=== PATIENT | male | born 1980 | race American Indian/Alaskan Native ===

== ENCOUNTER 2019-06-13 22:19 | Emergency (ER) | payer SELFPAY ==
[2019-06-13 22:24] VITALS: BP 123/71
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
== END 2019-06-14 01:00 | disposition left against medical advice (07) ==
LOC: ED 22:19
DX: Z04.1 Encounter for examination and observation following transport accident (principal); Z53.21 Procedure and treatment not carried out due to patient leaving prior to being seen by health care provider
CPT/HCPCS: 72040

== ENCOUNTER 2020-08-07 05:06 | Emergency (ER) | payer SELFPAY ==
[2020-08-07 06:37] LABS: Bilirubin,Urine NEG (Negative); Blood,Urine NEG (Negative); Color,Urine Straw (Yellow); Protein,Urine <15 mg/dL mg/dL (Negative); Urobilinogen,Urine < 2.0 mg/dL (<2.0)
[2020-08-07 07:29] LABS: Basophils % (Auto) 0.3 % (0.0-1.8); Eosinophils # (Auto) 0.1 K/mm3 (0.0-0.4); Eosinophils % (Auto) 2.4 % (0.0-4.3); Hemoglobin 13.8 gm/dl (11.8-15.2); Lymphocytes # (Auto) 2.4 K/mm3 (1.2-5.4); Lymphocytes % (Auto) 42.7 % (13.4-35.0); Mean Corpuscular HGB Conc 35 % (32-34); Mean Corpuscular Volume 96 fl (84-94); Monocytes # (Auto) 0.6 K/mm3 (0.0-0.8); Monocytes % (Auto) 10.7 % (0.0-7.3); Platelet Count 217 K/mm3 (140-440); Red Blood Count 4.17 M/mm3 (3.65-5.03); Red Cell Distribution Width 13.3 % (13.2-15.2)
[2020-08-07 07:48] LABS: Alanine Aminotransferase 15 units/L (7-56); Albumin 4.2 g/dL (3.9-5); BUN/Creatinine Ratio 11; Blood Urea Nitrogen 12 mg/dL (9-20); Calcium 9.2 mg/dL (8.4-10.2); Hemolysis Index 6
[2020-08-07] MEDS ORDERED: AZITHROMYCIN 250 MG TAB PO ONE (11:26)
[2020-08-07] MEDS ORDERED: LIDOCAINE-MPF (1%) 10 MG/1 ML VIAL 5 ML INFILTRATI ONE (11:26)
--- NOTE | 2020-08-07 11:38 | Emergency Department Report ---
ED General Adult HPI - General Chief complaint: Abdominal Pain Stated complaint: ABD/GROIN PAIN Time Seen by Provider: 08/07/20 10:56 Source: patient Mode of arrival: Ambulatory Limitations: No Limitations - History of Present Illness Initial comments: Patient is a 39-year-old male presents emergency room with complaints of suprapubic abdominal pain that began 3 days ago. He has associated white penile discharge. He denies any vomiting, diarrhea, fever, dysuria, hematuria, urinary retention, pain or swelling in the testicles, lesions or blisters. He states he had a normal bowel movement this morning. He states he has had a new sexual partner. He states he has had a STD in the past approximately 20 years ago. He denies any allergies to medications. - Related Data Allergies Allergy/AdvReac Type Severity Reaction Status Date / Time No Known Allergies Allergy Verified 06/13/19 22:25 ED Review of Systems ROS: Stated complaint: ABD/GROIN PAIN Other details as noted in HPI Comment: All other systems reviewed and negative ED Past Medical Hx - Past Medical History Previous Medical History?: No - Surgical History Past Surgical History?: No - Social History Smoking Status: Never Smoker Substance Use Type: None ED Physical Exam - General Limitations: No Limitations General appearance: alert, in no apparent distress - Head Head exam: Present: atraumatic, normocephalic - Eye Eye exam: Present: normal appearance - ENT ENT exam: Present: mucous membranes moist - Respiratory Respiratory exam: Present: normal lung sounds bilaterally. Absent: respiratory distress, wheezes, rales, rhonchi, stridor, chest wall tenderness, accessory muscle use, decreased breath sounds, prolonged expiratory - Cardiovascular Cardiovascular Exam: Present: regular rate, normal rhythm, normal heart sounds. Absent: systolic murmur, diastolic murmur, rubs, gallop - GI/Abdominal GI/Abdominal exam: Present: soft, normal bowel sounds. Absent: distended, tenderness, guarding, rebound, rigid - exam: Present: other (pt deferred) - Neurological Exam Neurological exam: Present: alert, oriented X3 - Psychiatric Psychiatric exam: Present: normal affect, normal mood - Skin Skin exam: Present: warm, dry, intact ED Course Vital Signs 08/07/20 08/07/20 08/07/20 06:08 11:55 12:45 Temperature 97.9 F 98.1 F Pulse Rate 53 L 57 L Respiratory 18 18 16 Rate Blood Pressure 95/40 Blood Pressure 102/57 [Left] O2 Sat by Pulse 98 99 99 Oximetry ED Medical Decision Making - Lab Data Result diagrams: 08/07/20 07:01 08/07/20 07:01 Lab Results 08/07/20 08/07/20 08/07/20 Range/Units 06:18 07:01 07:01 WBC 5.6 (4.5-11.0) K/mm3 RBC 4.17 (3.65-5.03) M/mm3 Hgb 13.8 (11.8-15.2) gm/dl Hct 40.0 (35.5-45.6) % MCV 96 H (84-94) fl MCH 33 H (28-32) pg MCHC 35 H (32-34) % RDW 13.3 (13.2-15.2) % Plt Count 217 (140-440) K/mm3 Lymph % (Auto) 42.7 H (13.4-35.0) % Campbell % (Auto) 10.7 H (0.0-7.3) % Eos % (Auto) 2.4 (0.0-4.3) % Baso % (Auto) 0.3 (0.0-1.8) % Lymph # (Auto) 2.4 (1.2-5.4) K/mm3 Campbell # (Auto) 0.6 (0.0-0.8) K/mm3 Eos # (Auto) 0.1 (0.0-0.4) K/mm3 Baso # (Auto) 0.0 (0.0-0.1) K/mm3 Seg Neutrophils % 43.9 (40.0-70.0) % Seg Neutrophils # 2.5 (1.8-7.7) K/mm3 Sodium 139 (137-145) mmol/L Potassium 4.6 (3.6-5.0) mmol/L Chloride 103.3 (98-107) mmol/L Carbon Dioxide 30 (22-30) mmol/L Anion Gap 10 mmol/L BUN 12 (9-20) mg/dL Creatinine 1.1 (0.8-1.3) mg/dL Estimated GFR > 60 ml/min BUN/Creatinine Ratio 11 % Glucose 87 (75-100) mg/dL Calcium 9.2 (8.4-10.2) mg/dL Total Bilirubin 0.20 (0.1-1.2) mg/dL AST 22 (5-40) units/L ALT 15 (7-56) units/L Alkaline Phosphatase 88 (35-129) units/L Total Protein 7.4 (6.3-8.2) g/dL Albumin 4.2 (3.9-5) g/dL Albumin/Globulin Ratio 1.3 % Urine Color Straw (Yellow) Urine Turbidity Clear (Clear) Urine pH 6.0 (5.0-7.0) Ur Specific Olin 1.005 (1.003-1.030) Urine Protein <15 mg/dl (Negative) mg/dL Urine Glucose (UA) Neg (Negative) mg/dL Urine Ketones Neg (Negative) mg/dL Urine Blood Neg (Negative) Urine Nitrite Neg (Negative) Urine Bilirubin Neg (Negative) Urine Urobilinogen < 2.0 (<2.0) mg/dL Ur Leukocyte Esterase Lg (Negative) Urine WBC (Auto) 37.0 H (0.0-6.0) /HPF Urine RBC (Auto) 1.0 (0.0-6.0) /HPF U Epithel Cells (Auto) < 1.0 (0-13.0) /HPF Vital Signs 08/07/20 08/07/20 08/07/20 06:08 11:55 12:45 Temperature 97.9 F 98.1 F Pulse Rate 53 L 57 L Respiratory 18 18 16 Rate Blood Pressure 95/40 Blood Pressure 102/57 [Left] O2 Sat by Pulse 98 99 99 Oximetry - Medical Decision Making Patient is a 39-year-old male presents emergency room with complaints of suprapubic abdominal pain that began 3 days ago. He has associated white penile discharge. He denies any vomiting, diarrhea, fever, dysuria, hematuria, urin roshan retention, pain or swelling in the testicles, lesions or blisters. He states he had a normal bowel movement this morning. He states he has had a new sexual partner. He states he has had a STD in the past approximately 20 years ago. He denies any allergies to medications. Vitals are stable. No abdominal tenderness on exam, no guarding, no rebound, no rigidity, normal bowel sounds. Labs are within normal limits. UA shows evidence of white blood cells and leukocyte esterase. Given that patient is having penile discharge this is likely from an STD. G/C sent. Patient prophylactically treated for G/C with ceftriaxone and azithromycin. Advised patient that he would need to follow-up with the health department or clinic to receive a full STD panel. Avoid sexual intercourse. Please have any partner tested and treated as well. Return to emergency room for any new or worsening symptoms. Critical care attestation.: If time is entered above; I have spent that time in minutes in the direct care of this critically ill patient, excluding procedure time. ED Disposition Clinical Impression: Suprapubic pain, Penile discharge, Concern about STD in male without diagnosis Disposition: DC- TO HOME OR SELFCARE Is pt being admited?: No Does the pt Need Aspirin: No Condition: Stable Instructions: Gonorrhea Test, Safe Sex, Chlamydia Test Additional Instructions: follow-up with the health department or clinic to receive a full STD panel. Avoid sexual intercourse. Please have any partner tested and treated as well. Return to emergency room for any new or worsening symptoms. walk in clinic: [facility] Address: [address] [place] [id number] Referrals: [facility] [Primary Care Provider] - 2-3 Days [facility] [Provider Group] - 2-3 Days [facility] [Outside] - 2-3 Days Time of Disposition: 11:38 Print Language: ZAMBIAN
[2020-08-07 15:07] VITALS: BP 102/57
== END 2020-08-07 12:50 | disposition home or self-care (01) ==
LOC: ED 05:06
DX: Z20.2 Contact with and (suspected) exposure to infections with a predominantly sexual mode of transmission (principal)
CPT/HCPCS: 36415; 80053; 81001; 85025; 87086; 87591; 96372; 99283; J0696

== ENCOUNTER 2021-07-13 13:36 | Emergency (ER) | payer SELFPAY ==
[2021-07-13 14:34] VITALS: BP 136/76
--- NOTE | 2021-07-13 14:46 | Emergency Department Report ---
ED ENT HPI - General Chief complaint: Dental/Oral Stated complaint: PAIN IN THE BACK LEFT SIDE OF MOUTH Time Seen by Provider: 07/13/21 14:38 Source: patient Mode of arrival: Ambulatory Limitations: No Limitations - History of Present Illness Initial comments: Patient is a 40-year-old male presents emergency room complaints of left lower dental pain that exacerbated 2 days ago. He states approximately 2 months ago he began feeling some pain in this region but states that he put it off. He states over the last 2 days the pain has been constant. He states he has noticed some swelling to the gums. He denies any fever, difficulty swallowing, difficulty breathing, vomiting. He states he has not seen a dentist in over 10 years. No past medical history. No allergies to medications. - Related Data Previous Rx's Medication Instructions Recorded Last Taken Type Chlorhexidine Mouthwash [Peridex] 15 ml MM BID #1 bottle 07/13/21 Unknown Rx Naproxen 375 mg PO BID #14 tablet 07/13/21 Unknown Rx Penicillin Vk [Veetids TAB] 500 mg PO QID 7 Days #56 tablet 07/13/21 Unknown Rx Allergies Allergy/AdvReac Type Severity Reaction Status Date / Time No Known Allergies Allergy Verified 06/13/19 22:25 ED Dental HPI - General Chief complaint: Dental/Oral Stated complaint: PAIN IN THE BACK LEFT SIDE OF MOUTH Time Seen by Provider: 07/13/21 14:38 Source: patient Mode of arrival: Ambulatory Limitations: No Limitations - Related Data Previous Rx's Medication Instructions Recorded Last Taken Type Chlorhexidine Mouthwash [Peridex] 15 ml MM BID #1 bottle 07/13/21 Unknown Rx Naproxen 375 mg PO BID #14 tablet 07/13/21 Unknown Rx Penicillin Vk [Veetids TAB] 500 mg PO QID 7 Days #56 tablet 07/13/21 Unknown Rx Allergies Allergy/AdvReac Type Severity Reaction Status Date / Time No Known Allergies Allergy Verified 06/13/19 22:25 ED Review of Systems ROS: Stated complaint: PAIN IN THE BACK LEFT SIDE OF MOUTH Other details as noted in HPI Comment: All other systems reviewed and negative ED Past Medical Hx - Past Medical History Previous Medical History?: Yes - Surgical History Past Surgical History?: No - Social History Smoking Status: Never Smoker Substance Use Type: Marijuana - Medications Home Medications: Home Medications Medication Instructions Recorded Confirmed Last Taken Type Chlorhexidine Mouthwash [Peridex] 15 ml MM BID #1 bottle 07/13/21 Unknown Rx Naproxen 375 mg PO BID #14 tablet 07/13/21 Unknown Rx Penicillin Vk [Veetids TAB] 500 mg PO QID 7 Days #56 tablet 07/13/21 Unknown Rx ED Physical Exam - General Limitations: No Limitations General appearance: alert, in no apparent distress - Head Head exam: Present: atraumatic, normocephalic - Eye Eye exam: Present: normal appearance - ENT ENT exam: Present: mucous membranes moist, other (cracked/partially impacted left lower back tooth, mild edema of the gumline, no facial edema, no trismus, no tongue elevation, no muffled voice, no submandibular edema) - Respiratory Respiratory exam: Present: normal lung sounds bilaterally. Absent: respiratory distress, wheezes, rales, rhonchi, stridor, chest wall tenderness, accessory muscle use, decreased breath sounds, prolonged expiratory - Cardiovascular Cardiovascular Exam: Present: normal rhythm, bradycardia, normal heart sounds. Absent: systolic murmur, diastolic murmur, rubs, gallop - Neurological Exam Neurological exam: Present: alert, oriented X3 - Psychiatric Psychiatric exam: Present: normal affect, normal mood - Skin Skin exam: Present: warm, dry, intact ED Course Vital Signs 07/13/21 14:27 Temperature 98.0 F Pulse Rate 53 L Respiratory 18 Rate Blood Pressure 136/76 O2 Sat by Pulse 99 Oximetry ED Medical Decision Making - Medical Decision Making Patient is a 40-year-old male presents emergency room complaints of left lower dental pain that exacerbated 2 days ago. He states approximately 2 months ago he began feeling some pain in this region but states that he put it off. He states over the last 2 days the pain has been constant. He states he has noticed some swelling to the gums. He denies any fever, difficulty swallowing, difficulty breathing, vomiting. He states he has not seen a dentist in over 10 years. No past medical history. No allergies to medications. Vitals are stable. On exam:cracked/partially impacted left lower back tooth, mild edema of the gumline, no facial edema, no trismus, no tongue elevation, no muffled voice, no submandibular edema. Examination appears consistent with infected dental caries. No clinical signs of facial abscess, facial cellulitis, or Familia's at this time. Given prescription for medication. Patient given list of dental clinics. Advised patient Please take medication as prescribed. Follow-up with your dentist. Return to emergency room for any new or worsening symptoms. Critical care attestation.: If time is entered above; I have spent that time in minutes in the direct care of this critically ill patient, excluding procedure time. ED Disposition Clinical Impression: Infected dental caries Disposition: HOME / SELF CARE / HOMELESS Is pt being admited?: No Does the pt Need Aspirin: No Condition: Stable Additional Instructions: Please take medication as prescribed. Follow-up with your dentist. Return to emergency room for any new or worsening symptoms. Prescriptions: Naproxen 375 mg PO BID #14 tablet Chlorhexidine Mouthwash [Peridex] 15 ml MM BID #1 bottle Penicillin Vk [Veetids TAB] 500 mg PO QID 7 Days #56 tablet Referrals: [facility] [Outside] - 3-[address] [facility] [Outside] - 3-5 Days Time of Disposition: 14:45 Print Language: UKRAINIAN
== END 2021-07-13 20:08 | disposition home or self-care (01) ==
LOC: ED 13:36
DX: K02.9 Dental caries, unspecified (principal); F12.90 Cannabis use, unspecified, uncomplicated; Z98.890 Other specified postprocedural states; Z79.899 Other long term (current) drug therapy
CPT/HCPCS: 99281